=== PATIENT | male | born 1970 | race Caucasian/White ===

== ENCOUNTER 2018-12-23 07:02 | Day surgery (SDC) | payer OTHER ==
[~2018-12-23] VITALS: Ht 152.4 cm; Wt 128.0 kg
[~2018-12-23 07:02] MED LIST: AMLO5 PO; AMLOATOR; ATOR20 PO; Acidophilus La100 GM; Advil200 M1 PO; Benadryl 50 mg50 MG PO; CHOL10002 PO; HYDACE10B PO; HYDR25SUP PR; Inderal60 MG; METF500 PO; Multiple Vitam1 EAC1 PO; Prednisone20 MG PO; ZOLP5 PO; [UNRECOGNIZED DRUG - OTHER] TP
--- NOTE | 2018-12-23 12:56 | NUR ---
12/23/18 1256 Dennise Middleton GIVEN IS INSTRUCTIONS, GIVEN INSCENTIVE SPIROMETER. DEMONSTRATES GOOD USE
== END 2018-12-23 13:05 | disposition home or self-care (01) ==
LOC: ORSCSDS 07:02
PROVIDERS: Otolaryngology
PROC: 09TL0ZZ Resection of Nasal Turbinate, Open Approach (ICD-10-PCS; principal; 2018-12-23 08:15)
PROC: 09QM0ZZ Repair Nasal Septum, Open Approach (ICD-10-PCS; principal; 2018-12-23 08:15)
DX: J34.89 Other specified disorders of nose and nasal sinuses (principal); G47.33 Obstructive sleep apnea (adult) (pediatric); I10 Essential (primary) hypertension; E11.9 Type 2 diabetes mellitus without complications; E66.01 Morbid (severe) obesity due to excess calories; Z68.38 Body mass index [BMI] 38.0-38.9, adult; Z79.899 Other long term (current) drug therapy
CPT/HCPCS: 82947; J0171; J1100; J2250; J2405; J2704; J2710; J2765; J3010; J7120

== ENCOUNTER 2020-01-20 05:58 | Day surgery (SDC) | payer OTHER ==
[~2020-01-20] VITALS: Ht 182.9 cm; Wt 137.6 kg
[2020-01-20] MEDS ORDERED: ATOR20 PO (06:40)
[2020-01-20] MEDS ORDERED: AMLO5 PO (06:40)
[2020-01-20] MEDS ORDERED: FISH OIL 1,001000 MG PO (06:43)
--- NOTE | 2020-01-20 07:31 | NUR ---
Ambulatory in Day Surgery. History, Chart, Medications and Allergies reviewed before start of procedure.Patient confirms NPO status and agrees with scheduled surgery. Patient reports completing Chlorhexadine shower X2 prior to admission to hospital.Surgical site prepped with 2% Chlorhexidine cloth wipe.
--- NOTE | 2020-01-20 11:30 | NUR ---
Discharge instructions reviewed with patient. Patient verbalizes understanding. Copy given to patient to take home. Patient up to Ambulate independently. Gait steady. Dressing to procedure site clean, dry, intact with no visible drainage, swelling, erythema or bruising noted. Patient States Post-Procedure ride home has been arranged. Discharged via wheelchair to private car for ride home. PT GIVEN HARD COPY RX FOR NORCO
== END 2020-01-20 23:16 | disposition home or self-care (01) ==
LOC: ORSCMMR 05:58 → ORD 07:30 → ORSCMMR 23:16
PROVIDERS: Surgery
PROC: 0WQF0ZZ Repair Abdominal Wall, Open Approach (ICD-10-PCS; principal; 2020-01-20 07:30)
PROC: 0YU64JZ Supplement Left Inguinal Region with Synthetic Substitute, Percutaneous Endoscopic Approach (ICD-10-PCS; principal; 2020-01-20 07:30)
PROC: 8E0W4CZ Robotic Assisted Procedure of Trunk Region, Percutaneous Endoscopic Approach (ICD-10-PCS; principal; 2020-01-20 07:30)
DX: K40.90 Unilateral inguinal hernia, without obstruction or gangrene, not specified as recurrent (principal); K42.9 Umbilical hernia without obstruction or gangrene; I10 Essential (primary) hypertension; G47.33 Obstructive sleep apnea (adult) (pediatric); K21.9 Gastro-esophageal reflux disease without esophagitis; E11.9 Type 2 diabetes mellitus without complications; E78.5 Hyperlipidemia, unspecified; E66.01 Morbid (severe) obesity due to excess calories; Z68.41 Body mass index [BMI] 40.0-44.9, adult; Z79.899 Other long term (current) drug therapy; Z79.84 Long term (current) use of oral hypoglycemic drugs
CPT/HCPCS: 49650; 49585; S2900; 82947; A9270-GY; C1781; J0690; J1100; J2250; J2405; J2704; J3010; J7120